=== PATIENT | female | born 1995 | race Two or more races ===

== ENCOUNTER 2022-02-12 18:50 | Emergency (ER) | payer MEDICAID ==
[~2022-02-12] VITALS: Ht 154.9 cm; Wt 90.7 kg
[2022-02-12 19:35] LABS: Urine Bacteria FEW /hpf (None Seen); Urine Blood 2+ /uL (Negative); Urine Mucus FEW (None Seen); Urine Specific Gravity 1.028 (1.001-1.035); Urine WBC 4 /hpf (0 - 5)
[2022-02-12] MEDS ORDERED: SULF400T11 PO (20:37)
[2022-02-12] MEDS ORDERED: SULFAMETHOX W/TRIMETH(800/160MG) DS TAB PO ONE (20:45)
[2022-02-12] MEDS ORDERED: IBUPROFEN 600 MG TAB PO ONE (20:45)
[2022-02-12] MEDS ORDERED: ACETAMINOPHEN 325 MG TAB PO ONE (20:45)
[2022-02-12 22:17] VITALS: BP 120/77
== END 2022-02-12 22:20 | disposition home or self-care (01) ==
LOC: ER 18:50
DX: N39.0 Urinary tract infection, site not specified (principal); M54.50 Low back pain, unspecified; Z79.899 Other long term (current) drug therapy
CPT/HCPCS: 81001; 81025